=== PATIENT | male | born 1960 | race African-American/Black ===

== ENCOUNTER 2018-02-05 23:16 | Emergency (ER) | payer MEDICAID, OTHER ==
[~2018-02-05] VITALS: Ht 170.2 cm; Wt 64.0 kg
[2018-02-06 02:41] VITALS: BP 129/69
== END 2018-02-06 02:16 | disposition home or self-care (01) ==
LOC: ER 23:20
DX: M54.6 Pain in thoracic spine (principal); M54.2 Cervicalgia; M25.561 Pain in right knee; M25.562 Pain in left knee; F12.10 Cannabis abuse, uncomplicated; F17.290 Nicotine dependence, other tobacco product, uncomplicated; V43.52XA Car driver injured in collision with other type car in traffic accident, initial encounter; Y93.89 Activity, other specified; Y92.89 Other specified places as the place of occurrence of the external cause; Y99.8 Other external cause status
CPT/HCPCS: 99283; 99406

== ENCOUNTER 2020-07-03 10:44 | Emergency (ER) | payer OTHER ==
[~2020-07-03] VITALS: Ht 170.2 cm; Wt 68.0 kg
[2020-07-03] MEDS ORDERED: TRAMADOL 50MG TABLET PO ONE (11:30)
[2020-07-03] MEDS ORDERED: ACETAMINOPHEN 325MG TABLET PO ONE (11:30)
[2020-07-03] MEDS ORDERED: IBUP-2029 MT (12:20)
[2020-07-03 12:42] VITALS: BP 125/76
== END 2020-07-03 12:45 | disposition home or self-care (01) ==
LOC: ER 11:50
DX: S16.1XXA Strain of muscle, fascia and tendon at neck level, initial encounter (principal); F12.10 Cannabis abuse, uncomplicated; F17.210 Nicotine dependence, cigarettes, uncomplicated; V43.52XA Car driver injured in collision with other type car in traffic accident, initial encounter; Y93.89 Activity, other specified; Y92.488 Other paved roadways as the place of occurrence of the external cause
CPT/HCPCS: 99283

== ENCOUNTER 2021-04-27 03:53 | Emergency (ER) | payer OTHER ==
[~2021-04-27] VITALS: Ht 170.2 cm; Wt 73.0 kg
[~2021-04-27 03:53] MED LIST: IBUP-2029 MT
[2021-04-27 04:04] VITALS: BP 138/85
[2021-04-27 05:01] LABS: CLARITY URINE CLEAR (CLEAR); COLOR URINE YELLOW (YELLOW); KETONES URINE NEGATIVE (NEGATIVE); LEUKOCYTE ESTERASE URINE NEGATIVE (NEGATIVE); NITRITE URINE NEGATIVE (NEGATIVE); OCCULT BLOOD URINE TRACE (NEGATIVE); PH URINE 7.5 (4.5-8.0); PROTEIN URINE NEGATIVE (NEGATIVE); SPECIFIC GRAVITY URINE 1.017 (1.005-1.030)
== END 2021-04-27 05:17 | disposition home or self-care (01) ==
LOC: ER 03:53
DX: R31.29 Other microscopic hematuria (principal); F12.10 Cannabis abuse, uncomplicated
CPT/HCPCS: 81003; 99283

== ENCOUNTER 2022-03-25 17:33 | Emergency (ER) | payer OTHER ==
[~2022-03-25] VITALS: Ht 172.7 cm; Wt 80.0 kg
[2022-03-25 19:15] VITALS: BP 150/84
[2022-03-25] MEDS ORDERED: IBUPROFEN 600MG TABLET PO ONE (19:15)
[2022-03-25] MEDS ORDERED: TETANUS, DIPHTHERIA, PERTUSSIS VAC/PF 0.5ML (>10YR OLD) IM ONE (20:00)
== END 2022-03-25 20:00 | disposition home or self-care (01) ==
LOC: ER 17:53
DX: S90.02XA Contusion of left ankle, initial encounter (principal); F12.10 Cannabis abuse, uncomplicated; V13.4XXA Pedal cycle driver injured in collision with car, pick-up truck or van in traffic accident, initial encounter; Y93.89 Activity, other specified; Y92.488 Other paved roadways as the place of occurrence of the external cause
CPT/HCPCS: 73590; 73600; 90471; 90715; 99284

== ENCOUNTER 2022-04-22 08:19 | Emergency (ER) | payer MEDICAID ==
[~2022-04-22] VITALS: Ht 170.2 cm; Wt 68.0 kg
[2022-04-22 08:51] VITALS: BP 119/67
[2022-04-22] MEDS ORDERED: MECLIZINE 25MG TABLET PO ONE (09:15)
[2022-04-22] MEDS ORDERED: SODIUM CHLORIDE 0.9% 1,000 ML IV ONE (09:15)
[2022-04-22 10:22] LABS: CHLORIDE 110 mEq/L (98-107); HEMATOCRIT. 43.8 % (42.0-52.0); HEMOGLOBIN. 14.7 g/dL (14.0-18.0); LYMPHOCYTES % 21.3 % (20.0-50.0); MEAN CORPUSCULAR HEMOGLOBIN 29.7 pg (28.0-32.0); MEAN CORPUSCULAR VOLUME 88.1 fL (80.0-94.0); MEAN PLATELET VOLUME 7.9 fl (7.4-10.4); MONOCYTES % 7.3 % (2.0-8.0); NEUTROPHILS % 67.4 % (40.0-76.0); PLATELET 255 x1000/uL (130-400); RED BLOOD CELL COUNT 4.97 mill/uL (4.7-6.1); RED CELL DISTRIBUTION WIDTH 13.6 % (11.6-14.6)
[2022-04-22] MEDS ORDERED: MECLIZINE 25MG TABLET PO NR (12:45)
[2022-04-22] MEDS ORDERED: MECL-159 PO (13:04)
== END 2022-04-22 15:37 | disposition home or self-care (01) ==
LOC: ER 08:19
DX: R42 Dizziness and giddiness (principal); F12.10 Cannabis abuse, uncomplicated; Z87.828 Personal history of other (healed) physical injury and trauma
CPT/HCPCS: 36415; 71045; 80053; 82962; 85025; 93005; 96360; 99285; J7030; J8597

== ENCOUNTER 2024-02-14 02:45 | Emergency (ER) | payer OTHER ==
[~2024-02-14] VITALS: Ht 172.7 cm; Wt 76.0 kg
[~2024-02-14 02:45] MED LIST changes: +MECL-299 PO
[2024-02-14 02:49] VITALS: BP 132/76; PULSE 86; RESP 16; O2SAT 99
[2024-02-14] MEDS: BACITRACIN ZINC OINT UDPKT TOP ONE (03:54)
[2024-02-14] MEDS: LIDOCAINE HCL 1% 20ML VIAL INFIL ONE (03:54)
[2024-02-14] MEDS ORDERED: ACET-2708 MT (04:01)
[2024-02-14 04:42] VITALS: TEMP 98.1
[2024-02-14] MEDS: ACETAMINOPHEN 325MG TABLET PO ONE (04:42)
== END 2024-02-14 04:34 | disposition home or self-care (01) ==
LOC: ER 02:45
DX: S61.012A Laceration without foreign body of left thumb without damage to nail, initial encounter (principal); S11.81XA Laceration without foreign body of other specified part of neck, initial encounter; F12.90 Cannabis use, unspecified, uncomplicated; X58.XXXA Exposure to other specified factors, initial encounter; Y93.89 Activity, other specified; Y92.89 Other specified places as the place of occurrence of the external cause; Y99.8 Other external cause status
CPT/HCPCS: 99283; Z7610

== ENCOUNTER 2024-05-03 05:16 | Emergency (ER) | payer OTHER ==
[~2024-05-03] VITALS: Ht 170.2 cm; Wt 70.0 kg
[~2024-05-03 05:16] MED LIST changes: +ACET-2708 MT
[2024-05-03 05:22] VITALS: O2SAT 97
[2024-05-03 06:45] VITALS: BP 138/84; PULSE 74; RESP 18; TEMP 36.4; O2SAT 100
[2024-05-03 06:45] LABS: BASOPHILS % 1.1 % (0.0-2.0); EOSINOPHILS % 13.5 % (0.0-5.0); HEMATOCRIT. 40.8 % (42.0-52.0); HEMOGLOBIN. 13.7 g/dL (14.0-18.0); LYMPHOCYTES % 26.5 % (20.0-50.0); MEAN CORPUSCULAR HEMOGLOBIN 30.1 pg (28.0-32.0); MEAN CORPUSCULAR HGB CONC 33.5 g/dL (31.0-37.0); MEAN CORPUSCULAR VOLUME 89.9 fL (80.0-94.0); MEAN PLATELET VOLUME 7.5 fl (7.4-10.4); MONOCYTES % 8.1 % (2.0-8.0); NEUTROPHILS % 50.8 % (40.0-76.0); PLATELET 256 x1000/uL (130-400); RED BLOOD CELL COUNT 4.54 mill/uL (4.7-6.1); RED CELL DISTRIBUTION WIDTH 13.5 % (11.6-14.6); WHITE BLOOD COUNT 5.3 x1000/uL (4.5-11.0)
[2024-05-03 06:54] LABS: PROTHROMBIN TIME 10.7 sec (9.6-11.0)
[2024-05-03 07:03] LABS: CHLORIDE 104 mEq/L (98-107); POTASSIUM 3.6 mEq/L (3.5-5.1); SODIUM 140 mEq/L (136-145)
[2024-05-03 07:04] LABS: CALCIUM 8.4 mg/dL (8.7-10.4); CARBON DIOXIDE 29 mEq/L (21-32)
[2024-05-03 07:09] LABS: CREATININE 0.8 mg/dL (0.6-1.3); GLUCOSE 70 mg/dL (70-105); UREA NITROGEN BLOOD 14 mg/dL (9-23)
[2024-05-03 07:17] LABS: ETHANOL BLOOD < 10 mg/dL (<10); TROPONIN I HIGH SENSITIVITY < 4 ng/L (3.0-53)
[2024-05-03] MEDS ORDERED: IOHEXOL-350 100 ML BOTTLE ONE (09:10)
== END 2024-05-03 07:05 | disposition left against medical advice (07) ==
LOC: ER 05:16
DX: R29.818 Other symptoms and signs involving the nervous system (principal); Z79.899 Other long term (current) drug therapy
CPT/HCPCS: 80048; 80320; 85025; 85610; 84484; 36415; 71045; 70496; 70498; 70450; 93005; 99291; Q9967; G0480

== ENCOUNTER 2024-08-09 17:55 | Emergency (ER) | payer OTHER ==
[~2024-08-09] VITALS: Ht 175.3 cm; Wt 64.0 kg
[2024-08-09 17:56] VITALS: TEMP 36.6; O2SAT 97
[2024-08-09 18:41] LABS: BASOPHILS % 1.3 % (0.0-2.0); EOSINOPHILS % 6.2 % (0.0-5.0); HEMATOCRIT. 40.6 % (42.0-52.0); HEMOGLOBIN. 13.5 g/dL (14.0-18.0); LYMPHOCYTES % 26.8 % (20.0-50.0); MEAN CORPUSCULAR HEMOGLOBIN 29.3 pg (28.0-32.0); MEAN CORPUSCULAR HGB CONC 33.2 g/dL (31.0-37.0); MEAN CORPUSCULAR VOLUME 88.1 fL (80.0-94.0); MONOCYTES % 11.6 % (2.0-8.0); NEUTROPHILS % 54.1 % (40.0-76.0); PLATELET 244 x1000/uL (130-400); RED BLOOD CELL COUNT 4.61 mill/uL (4.7-6.1); RED CELL DISTRIBUTION WIDTH 13.4 % (11.6-14.6); WHITE BLOOD COUNT 5.6 x1000/uL (4.5-11.0)
[2024-08-09 18:50] LABS: CHLORIDE 108 mEq/L (98-107); POTASSIUM 3.3 mEq/L (3.5-5.1); SODIUM 140 mEq/L (136-145)
[2024-08-09 18:51] LABS: CALCIUM 8.6 mg/dL (8.7-10.4); CARBON DIOXIDE 28 mEq/L (21-32); PROTHROMBIN TIME 10.3 sec (9.6-11.0)
[2024-08-09 18:56] LABS: CREATININE 0.8 mg/dL (0.6-1.3); GLUCOSE 114 mg/dL (70-105); UREA NITROGEN BLOOD 9 mg/dL (9-23)
[2024-08-09 18:57] LABS: AMMONIA < 17 uMol/L (<32); ETHANOL BLOOD < 10 mg/dL (<10)
[2024-08-09 18:58] LABS: ACETAMINOPHEN < 2 ug/mL (10-30); ALANINE AMINOTRANSFERASE 21 IU/L (10-49); ALBUMIN 3.9 g/dL (3.2-4.8); ASPARTATE AMINOTRANSFERASE 25 IU/L (<34); BILIRUBIN DIRECT 0.1 mg/dL (<=3.0); BILIRUBIN TOTAL 0.4 mg/dL (0.1-1.0); CREATINE KINASE 261 IU/L (46-171); PROTEIN TOTAL 6.3 g/dL (6.0-8.3)
[2024-08-09 19:00] LABS: THYROID STIMULATING HORMONE 0.67 uIU/mL (0.55-4.78)
[2024-08-09 19:04] LABS: TROPONIN I HIGH SENSITIVITY < 4 ng/L (3.0-53)
[2024-08-09 19:14] LABS: CLARITY URINE CLEAR (CLEAR); COLOR URINE YELLOW (YELLOW); GLUCOSE URINE NEGATIVE (NEGATIVE); KETONES URINE NEGATIVE (NEGATIVE); LEUKOCYTE ESTERASE URINE NEGATIVE (NEGATIVE); NITRITE URINE NEGATIVE (NEGATIVE); OCCULT BLOOD URINE NEGATIVE (NEGATIVE); PH URINE 6.5 (4.5-8.0); PROTEIN URINE NEGATIVE (NEGATIVE); SPECIFIC GRAVITY URINE 1.003 (1.005-1.030); UROBILINOGEN URINE 0.2 E.U./dL (0.2-1.0)
[2024-08-09 19:28] LABS: *AMPHETAMINES SCREEN URINE PRESUMPTIVE POSITIVE (NEGATIVE); *BARBITURATES SCREEN URINE NEGATIVE (NEGATIVE); *BENZODIAZEPINES SCREEN URINE NEGATIVE (NEGATIVE); *COCAINE SCREEN URINE NEGATIVE (NEGATIVE); METHADONE URINE SCREEN NEGATIVE (NEGATIVE)
[2024-08-09 19:29] LABS: CANNABINOID URINE SCREEN NEGATIVE (NEGATIVE); ECSTASY MDMA SCREEN URINE NEGATIVE (NEGATIVE); OPIATES URINE SCREEN NEGATIVE (NEGATIVE); PHENCYCLIDINE URINE SCREEN PRESUMTIVE POSITIVE (NEGATIVE)
[2024-08-09 21:20] VITALS: BP 147/78; PULSE 91; RESP 18; O2SAT 100
== END 2024-08-09 21:41 | disposition home or self-care (01) ==
LOC: ER 17:55
DX: F19.10 Other psychoactive substance abuse, uncomplicated (principal); F17.210 Nicotine dependence, cigarettes, uncomplicated; R07.9 Chest pain, unspecified; E87.8 Other disorders of electrolyte and fluid balance, not elsewhere classified; Z55.6 Problems related to health literacy; Z79.899 Other long term (current) drug therapy
CPT/HCPCS: 36415; 71045; 80048; 80076; 80305; 80307; 80320; 80329; 81003; 82140; 82550; 84443; 84484; 85025; 93005; 99285; G0480

== ENCOUNTER 2024-10-20 01:50 | Emergency (ER) | payer MEDICAID, OTHER ==
[~2024-10-20] VITALS: Ht 170.2 cm; Wt 69.0 kg
[2024-10-20 01:55] VITALS: O2SAT 99
[2024-10-20] MEDS: IBUPROFEN 400MG TABLET PO ONE (02:36)
[2024-10-20] MEDS ORDERED: IBUP-2028 MT (04:35)
[2024-10-20 04:50] VITALS: BP 125/57; PULSE 72; RESP 18; TEMP 36.8; O2SAT 100
== END 2024-10-20 05:04 | disposition home or self-care (01) ==
LOC: ER 01:50
DX: R51.9 Headache, unspecified (principal); Z79.899 Other long term (current) drug therapy
CPT/HCPCS: 99282

== ENCOUNTER 2025-02-07 01:57 | Emergency (ER) | payer OTHER ==
[~2025-02-07] VITALS: Ht 170.2 cm; Wt 68.0 kg
[~2025-02-07 01:57] MED LIST changes: +IBUP-1455 MT; +IBUP-2028 MT; -IBUP-2029 MT
[2025-02-07 02:03] VITALS: O2SAT 98
[2025-02-07] MEDS: LIDOCAINE HCL 1% 20ML VIAL INL ONE (04:45)
[2025-02-07] MEDS: BACITRACIN ZINC OINT UDPKT TOP ONE (04:59)
[2025-02-07] MEDS: IBUPROFEN 800MG TABLET PO ONE (06:30)
[2025-02-07] MEDS ORDERED: IBUP-2030 MT (07:37)
[2025-02-07] MEDS ORDERED: AMOX1TAB16 MT (07:37)
[2025-02-07] MEDS ORDERED: BO1 TP (07:37)
[2025-02-07 07:46] VITALS: BP 121/81; PULSE 89; RESP 18; TEMP 36.6; O2SAT 99
== END 2025-02-07 07:47 | disposition home or self-care (01) ==
LOC: ER 01:57
DX: S61.411A Laceration without foreign body of right hand, initial encounter (principal); R60.0 Localized edema; Y04.0XXA Assault by unarmed brawl or fight, initial encounter; Y93.89 Activity, other specified; Y92.89 Other specified places as the place of occurrence of the external cause; Y99.8 Other external cause status
CPT/HCPCS: 73130; 12002; 99283; J2003; Z7610 ×2